=== PATIENT | female | born 1990 | race Caucasian/White ===

== ENCOUNTER 2021-05-16 20:05 | Emergency (ER) | payer BC ==
[~2021-05-16] VITALS: Ht 167.6 cm; Wt 55.0 kg
[2021-05-16 20:12] VITALS: BP 140/70
== END 2021-05-16 23:15 | disposition left against medical advice (07) ==
LOC: ER 20:05
DX: Z53.21 Procedure and treatment not carried out due to patient leaving prior to being seen by health care provider (principal); R10.9 Unspecified abdominal pain; I45.6 Pre-excitation syndrome
CPT/HCPCS: 93005

== ENCOUNTER 2024-12-12 20:18 | Emergency (ER) | payer BC ==
[~2024-12-12] VITALS: Ht 172.7 cm; Wt 85.3 kg
[2024-12-12 20:36] VITALS: TEMP 36.7; O2SAT 100
[2024-12-12 21:00] LABS: BASOPHILS % 0.5 % (0.0-2.0); EOSINOPHILS % 1.3 % (0.0-5.0); HEMATOCRIT. 37.4 % (36.0-48.0); HEMOGLOBIN. 12.3 g/dL (12.0-16.0); LYMPHOCYTES % 16.7 % (20.0-50.0); MEAN CORPUSCULAR HEMOGLOBIN 29.1 pg (28.0-32.0); MEAN CORPUSCULAR HGB CONC 32.9 g/dL (31.0-37.0); MEAN CORPUSCULAR VOLUME 88.6 fL (81.0-99.0); MEAN PLATELET VOLUME 9.1 fl (7.4-10.4); MONOCYTES % 4.5 % (2.0-8.0); PLATELET 307 x1000/uL (130-400); RED BLOOD CELL COUNT 4.22 mill/uL (4.2-5.4); RED CELL DISTRIBUTION WIDTH 13.4 % (11.6-14.6); WHITE BLOOD COUNT 13.3 x1000/uL (4.5-11.0)
[2024-12-12 21:06] LABS: CHLORIDE 107 mEq/L (98-107); POTASSIUM 3.7 mEq/L (3.5-5.1); SODIUM 141 mEq/L (136-145)
[2024-12-12 21:07] LABS: CARBON DIOXIDE 25 mEq/L (21-32)
[2024-12-12 21:12] LABS: CREATININE 0.8 mg/dL (0.6-1.0); GLUCOSE 118 mg/dL (70-105); UREA NITROGEN BLOOD 7 mg/dL (9-23)
[2024-12-12 21:14] LABS: ALANINE AMINOTRANSFERASE 20 IU/L (10-49); ALBUMIN 4.3 g/dL (3.2-4.8); ASPARTATE AMINOTRANSFERASE 21 IU/L (<34); BILIRUBIN DIRECT 0.1 mg/dL (<=3.0); BILIRUBIN TOTAL 0.3 mg/dL (0.1-1.0); PROTEIN TOTAL 6.9 g/dL (6.0-8.3)
[2024-12-12] MEDS: ONDANSETRON 4MG ODT PO ONE (21:15)
[2024-12-12] MEDS: KETOROLAC 30MG/ML VIAL IM ONE (21:15)
[2024-12-12] MEDS ORDERED: IBUP-2029 MT (23:27)
[2024-12-13 00:02] VITALS: BP 121/58; PULSE 57; RESP 12; O2SAT 99
[2024-12-13] MEDS: HYDROCODONE/ACETAMINOPHEN 5/325MG TABLET PO ONE (00:02)
== END 2024-12-13 00:08 | disposition home or self-care (01) ==
LOC: ER 20:18
DX: K80.70 Calculus of gallbladder and bile duct without cholecystitis without obstruction (principal); Z79.899 Other long term (current) drug therapy
CPT/HCPCS: 36415; 76705; 80048; 80076; 85025; 99284